=== PATIENT | male | born 1935 | race Caucasian/White ===

== ENCOUNTER → 2017-05-15 | Outpatient (CLI) | payer MEDICARE, MEDICAID ==
[~2017-05-15] MED LIST: ALPHA LIPOIC A200 M1 PO; AMITIZA8 MCG PO; AMOXICILLIN 50500 MG PO; ARGINAID POWDE1 EACH PO; BUSPIRONE 5MG TA5 MG PO; CARBIDOPA/LE1 TABLE2 PO; CELEXA10 MG PO; CENTRUM SILVER1 TAB PO; CERTA PLUS TAB1 EACH PO; CITALOPRAM20 MG PO; CLARITIN REDITAB5 M1 PO; CLINDAMYCIN HC300 MG PO; DAILY VITAMIN1 EAC1 PO; DOCUSATE NA250 MG PO; DOCUSATE SODIU100 MG PO; ENTERIC ASPIRI325 MG PO; ENULOSE10 GM/15 M PO; FAMOTIDINE20 MG PO; FISH OIL1000 MG PO; FLORANEX1 CT1 PO; FLORASTOR250 MG PO; FSBS SC; FUROSEMIDE 20MG20 MG PO; GABAPENTIN 600600 MG PO; GLIPIZIDE10 MG PO; HYDROCHLOROTH12.5 M1 PO; HYDROCORTI30 GM/TUB3 TP; IBUPROFEN 600M600 MG PO; ISOSORBIDE MONO30 MG PO; JENTADUETO 2.51 TA1 PO; JENTADUETO1 TAB PO; K-99595 MG PO; KLOR-CON 88 MEQ PO; LANTUS INS100 UNITS/ SC; LASIX 20MG. TAB20 MG PO; LEVAQUIN500 MG PO; LEVOFLOXACIN 5500 M1 PO; LEVOTHYROXIN0.112 M1 PO; LIORESAL 10MG.10 MG PO; LIPITOR40 MG PO; LOSARTAN POTASS1 TA3 PO; LOSARTAN POTASS1 TAB PO; LUTEIN6 M1 PO; MECLIZINE HYDRO25 MG PO; METFORMIN 500M500 M1 PO; MIRALAX(PO17 GM/1 PA PO; MORPHINE SULFAT15 M3 PO; MORPHINE SULFAT60 MG PO; MS CONTIN30 MG PO; NAMENDA10 M1 PO; NATURE'S BLEND500 M2 PO; OMNICEF 300 MG300 MG PO; POTASSIUM CHLOR8 MEQ PO; PRAVASTATIN SOD80 M1 PO; PRAVASTATIN SOD80 MG PO; QUALITY CH PO; REMEDY WITH OL118 ML TP; SINEMET 25-1001 TAB PO; TRADJENTA5 MG PO; TRAZODONE 50MG50 MG PO; TRICOR 145 MG145 MG NG; TYLENOL ES500 MG PO; VITAMIN B121000 MC1 PO; VITAMIN C500 M3 PO; VITAMIN D1000 IU PO; VITAMIN D31000 IU PO; ZINC SULFATE220 MG PO; [UNRECOGNIZED DRUG - OTHER] PO; [UNRECOGNIZED DRUG - OTHER] PO; [UNRECOGNIZED DRUG - OTHER] TP
--- NOTE | 2017-05-15 16:40 | RADIOLOGY REPORT PS360 ---
ARTERIAL/[id number] PVD hyperlipidemia, peripheral vascular disease, diminished pulses with claudication ORDERING PHYSICIAN: RUSTY LEAL DPM PATIENT AGE: 82 years TECHNIQUE: Segmental pressures obtained of both right and left leg. These are compared to brachial blood pressure to yield index at each level sampled including summary ANDREA. The data sheets from the procedure are available in PACS FINDINGS Rest study only performed today No prior studies available for comparison. Blood pressures reported are in millimeters mercury. RIGHT LEG ANDREA = 1.0. Brachial BP: 119 Thigh BP: 149 Calf BP: 139 Ankle PT: 116 Ankle DP : 117 Digit =96 LEFT LEG ANDREA = 1.0 Brachial BPD: 117 Thigh BP: 140 Calf BP: 127 Ankle PT:121 Ankle DP: 114 Digit = 106 Pulses and waveforms: Pulses are diminished. Waveforms are unremarkable IMPRESSION: Normal ABIs with normal waveforms and diminished bilateral lower extremity pulses
== END ==
LOC: RT 12:56
DX: I73.9 Peripheral vascular disease, unspecified (principal); E11.9 Type 2 diabetes mellitus without complications